=== PATIENT | female | born 1990 | race American Indian/Alaskan Native ===

== ENCOUNTER 2019-10-16 06:15 | Inpatient (IN) | payer MEDICAID, OTHER ==
[2019-10-16] MEDS ORDERED: SODIUM CHLORIDE 0.9% 1000 ML 1,000 ML IV ONE ×3 (06:58→11:49)
--- NOTE | 2019-10-16 07:05 | Emergency Department Report ---
ED Female HPI - General Chief complaint: Vaginal Bleeding Stated complaint: VAGINAL BLEED/ABD PAIN Time Seen by Provider: 10/16/19 06:30 Source: EMS Mode of arrival: Stretcher Limitations: No Limitations - History of Present Illness Initial comments: This is a 29-year-old female who states that she was given medicine to induce primary provider at [facility]. She has had some bleeding since yesterday. She was seen 2 days ago and determined to have a nonviable 6 weeks gestational age . She is not very willing to provide historical information. She has not been checked in by nursing staff at the time of my encounter. She arrived via EMS. She is not currently complaining of pain. She has had some vaginal bleeding this morning. MD Complaint: vaginal bleeding -: Gradual, days(s) Consistency: intermittent Are you Now?: Yes Associated Symptoms: denies other symptoms - Related Data Previous Rx's Medication Instructions Recorded Last Taken Type HYDROcodone/APAP 5-325 [[place] 1 each PO Q4HR PRN #7 tablet 10/16/19 Unknown Rx 5/325] Allergies Allergy/AdvReac Type Severity Reaction Status Date / Time No Known Allergies Allergy Unverified 10/16/19 07:17 ED Review of Systems ROS: Stated complaint: VAGINAL BLEED/ABD PAIN Other details as noted in HPI Constitutional: denies: chills, fever Eyes: denies: eye pain, vision change ENT: denies: ear pain, throat pain Respiratory: denies: cough, shortness of breath Cardiovascular: denies: chest pain, palpitations Endocrine: no symptoms reported Gastrointestinal: denies: abdominal pain, nausea, diarrhea Genitourinary: as per HPI Musculoskeletal: denies: back pain, arthralgia Skin: denies: rash, lesions Neurological: denies: headache, weakness Psychiatric: denies: anxiety, depression Hematological/Lymphatic: denies: easy bleeding, easy bruising ED Past Medical Hx - Past Medical History Previous Medical History?: Yes Additional medical history: 6-week nonviable - Social History Smoking Status: Unknown if ever smoked Substance Use Type: None - Medications Home Medications: Home Medications Medication Instructions Recorded Confirmed Last Taken Type HYDROcodone/APAP 5-325 [[place] 1 each PO Q4HR PRN #7 tablet 10/16/19 Unknown Rx 5/325] ED Physical Exam - General Limitations: Physical Limitation General appearance: obese - Head Head exam: Present: atraumatic, normocephalic - Eye Eye exam: Present: normal appearance. Absent: scleral icterus - ENT ENT exam: Present: mucous membranes moist - Neck Neck exam: Present: normal inspection - Respiratory Respiratory exam: Present: normal lung sounds bilaterally. Absent: respiratory distress - Cardiovascular Cardiovascular Exam: Present: regular rate, normal rhythm. Absent: systolic murmur, diastolic murmur, rubs, gallop - GI/Abdominal GI/Abdominal exam: Present: soft, normal bowel sounds. Absent: distended, tenderness, guarding, rebound - External exam: Present: other (Patient still fully clad) - Extremities Exam Extremities exam: Present: normal inspection - Back Exam Back exam: Present: normal inspection - Neurological Exam Neurological exam: Present: alert, oriented X3, CN II-XII intact. Absent: motor sensory deficit - Psychiatric Psychiatric exam: Present: normal affect, normal mood - Skin Skin exam: Present: warm, dry, intact, normal color. Absent: rash ED Course Vital Signs 10/16/19 10/16/19 10/16/19 06:15 06:37 06:43 Temperature 98.9 F Pulse Rate 136 H 124 H Respiratory 18 18 Rate Blood Pressure Blood Pressure 122/73 [Right] O2 Sat by Pulse 100 Oximetry 10/16/19 10/16/19 10/16/19 07:00 07:38 07:46 Temperature Pulse Rate 113 H 112 H 103 H Respiratory 28 H Rate Blood Pressure 122/73 96/50 107/67 Blood Pressure [Right] O2 Sat by Pulse 100 100 100 Oximetry 10/16/19 10/16/19 10/16/19 08:00 08:16 08:30 Temperature Pulse Rate 95 H 94 H 105 H Respiratory Rate Blood Pressure 111/43 111/61 116/65 Blood Pressure [Right] O2 Sat by Pulse 99 100 99 Oximetry - Reevaluation(s) Reevaluation #1: Laboratory database. OB ultrasound. IV fluids. 10/16/19 07:06 Reevaluation #2: Patient appears comfortable. No active bleeding. Vital signs stable. 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 10/16/19 08:46 ED Medical Decision Making - Lab Data Result diagrams: 10/16/19 07:32 10/16/19 07:32 Laboratory Results - last 24 hr 10/16/19 10/16/19 10/16/19 07:32 07:32 07:32 WBC 14.9 H RBC 3.01 L Hgb 9.8 L Hct 29.1 L MCV 97 MCH 32 MCHC 34 RDW 19.1 H Plt Count 348 Lymph % (Auto) 3.8 L [place] % (Auto) 9.4 H Eos % (Auto) 0.0 Baso % (Auto) 0.2 Lymph # 0.6 L [place] # 1.4 H Eos # 0.0 Baso # 0.0 Seg Neutrophils % 86.6 H Seg Neutrophils # 12.9 H Sodium 136 L Potassium 3.2 L Chloride 102.3 Carbon Dioxide 18 L Anion Gap 19 BUN 6 L Creatinine 0.6 L Estimated GFR > 60 BUN/Creatinine Ratio 10 Glucose 180 H Calcium 8.7 HCG, Quant 78656 H - Radiology Data FINDINGS: The uterus is anteverted. The uterus measures 14 x 5 x 6 cm. No obvious uterine fibroid disease. The endometrial stripe measures up to 1.7 cm in thickness on transabdominal imaging. No normal intrauterine is detected. There is a cystic structure within the cervical canal measuring up to 3.9 cm in diameter which may represent a gestational sac. No clear yolk sac, pole or heart tones are demonstrated. The right ovary measures 2.6 x 1.7 x 1.7 cm. The left ovary measures 2.4 x 1.4 x 1.8 cm. No adnexal cyst or mass. No pelvic fluid collection. IMPRESSION No normal intrauterine is demonstrated. There may be a gestational sac in the cervical canal suggesting an impending . The endometrium is thickened measuring up to 1.7 cm on transabdominal imaging. Please correlate with the patient's clinical presentation. Close interval follow-up is recommended. Critical care attestation.: If time is entered above; I have spent that time in minutes in the direct care of this critically ill patient, excluding procedure time. ED Disposition Clinical Impression: Spontaneous in first trimester, Hypokalemia Disposition: - TO HOME OR SELFCARE Is pt being admited?: No Does the pt Need Aspirin: No Condition: Stable Instructions: Spontaneous Miscarriage (ED), Hypokalemia (ED) Additional Instructions: You may have some continued bleeding. Return to the emergency department or see your lumber chain offbearer if it is significant. Follow-up with your lumber chain offbearer. Rx as needed for pain. Prescriptions: HYDROcodone/APAP 5-325 [[place] 5/325] 1 each PO Q4HR PRN #7 tablet PRN Reason: Pain Referrals: PRIMARY CARE,MD [Primary Care Provider] - 3-5 Days Your, [facility] physician [Other] - 2-3 Days Time of Disposition: 08:47
[2019-10-16] MEDS ORDERED: MORPHINE 2 MG/1 ML INJ IV ONE (07:32)
[2019-10-16] MEDS ORDERED: ONDANSETRON 4 MG/2 ML INJ IV ONE (07:32)
[2019-10-16 07:47] LABS: Basophils % (Auto) 0.2 % (0.0-1.8); Hematocrit 29.1 % (30.3-42.9); Hemoglobin 9.8 gm/dl (10.1-14.3); Lymphocytes # (Auto) 0.6 K/mm3 (1.2-5.4); Lymphocytes % (Auto) 3.8 % (13.4-35.0); Mean Corpuscular HGB Conc 34 % (30-34); Mean Corpuscular Volume 97 fl (79-97); Monocytes # (Auto) 1.4 K/mm3 (0.0-0.8); Monocytes % (Auto) 9.4 % (0.0-7.3); Platelet Count 348 K/mm3 (140-440); Red Blood Count 3.01 M/mm3 (3.65-5.03); Red Cell Distribution Width 19.1 % (13.2-15.2)
[2019-10-16 07:57] LABS: BUN/Creatinine Ratio 10; Blood Urea Nitrogen 6 mg/dL (7-17); Calcium 8.7 mg/dL (8.4-10.2); Hemolysis Index 7
--- NOTE | 2019-10-16 08:00 | Ultrasound Report ---
FIRSTTRIMESTER OBSTETRIC ULTRASOUND HISTORY: Miscarriage, heavy vaginal bleeding with clots and cramping since yesterday COMPARISON: None. TECHNIQUE: Routine transabdominal OB ultrasound performed. FINDINGS: The uterus is anteverted. The uterus measures 14 x 5 x 6 cm. No obvious uterine fibroid disease. The endometrial stripe measures up to 1.7 cm in thickness on transabdominal imaging. No normal intrau terine is detected. There is a cystic structure within the cervical canal measuring up to 3 .9 cm in diameter which may represent a gestational sac. No clear yolk sac, pole or heart tones are demonstrated. The right ovary measures 2.6 x 1.7 x 1.7 cm. The left ovary measures 2.4 x 1.4 x 1.8 cm. No adnexal c yst or mass. No pelvic fluid collection. IMPRESSION No normal intrauterine is demonstrated. There may be a gestational sac in the cervical noemi l suggesting an impending . The endometrium is thickened measuring up to 1.7 cm on transabdom inal imaging. Please correlate with the patient's clinical presentation. Close interval follow-up is recommended. Signer Name: Suresh Cueto Jr, MD Signed: 10/16/2019 7:56 AM Workstation Name: [id number]
[2019-10-16] MEDS ORDERED: POTASSIUM CHLORIDE ER 20 MEQ TAB PO ONE (08:17)
[2019-10-16] MEDS ORDERED: HYDROcodone/ACETAMINOPHEN 5-325 MG TAB PO ONE (08:49)
[2019-10-16] MEDS ORDERED: METHYLERGONOVINE MALEATE 0.2 MG/ML VIAL IM ONE (12:47)
--- NOTE | 2019-10-16 12:59 | Consultation ---
History of Present Illness Consult date: 10/16/19 Requesting physician: YANELIS SAUNDERS Reason for consult: early problem History of present illness: This is a 29-year-old black female para 3-0-1-3 who presented to the emergency room with symptoms consistent with a spontaneous . Patient states she was seen approximately 2 days ago at [facility] and was diagnosed with a miscarriage. Patient states that she was given medication to help pass the . Patient presented in the emergency room due to increased heavy bleeding and pain. Work-up in emergency room included an ultrasound which revealed no intrauterine and what appears to be a collapsing gestational sac in her cervical canal. Past History Past Medical History: blood transfusion (Received postoperatively after section and after a previous miscarriage), other (Anemia) Past Surgical History: section, D&C Social history: - Obstetrical History : 5 Para: 3 Hx # Term Pregnancies: 3 Number of Pregnancies: 0 Spontaneous Abortions: 1 Induced : 0 Number of Living Children: 3 Medications and Allergies Allergies Allergy/AdvReac Type Severity Reaction Status Date / Time No Known Allergies Allergy Unverified 10/16/19 07:17 Home Medications Medication Instructions Recorded Confirmed Last Taken Type HYDROcodone/APAP 5-325 [[place] 1 each PO Q4HR PRN #7 tablet 10/16/19 Unknown Rx 5/325] Active Meds: Active Medications Sodium Chloride (Nacl 0.9% 1000 Ml) 1,000 mls @ 250 mls/hr IV ONCE ONE Stop: 10/16/19 15:48 Methylergonovine Maleate (Methergine) 0.2 mg IM ONCE ONE Stop: 10/16/19 12:48 - Vital Signs Vital signs: Vital Signs Temp 98.9 F 10/16/19 06:15 Temp Pulse Resp BP Pulse Ox 98.9 F 105 H 28 H 116/65 99 10/16/19 06:15 10/16/19 08:30 10/16/19 07:00 10/16/19 08:30 10/16/19 08:30 - Physical Exam Breasts: Positive: deferred Cardiovascular: Regular rate Lungs: Positive: Normal air movement Abdomen: Positive: normal appearance, soft Genitourinary (Female): Positive: normal external genitalia (Blood present in vagina) Vagina: Positive: normal moisture Cervix: Positive: other (What appears to be products of conception in cervical office) Results Result Diagrams: 10/16/19 07:32 10/16/19 07:32 Abnormal lab results 10/16/19 10/16/19 10/16/19 Range/Units 07:32 07:32 07:32 WBC 14.9 H (4.5-11.0) K/mm3 RBC 3.01 L (3.65-5.03) M/mm3 Hgb 9.8 L (10.1-14.3) gm/dl Hct 29.1 L (30.3-42.9) % RDW 19.1 H (13.2-15.2) % Lymph % (Auto) 3.8 L (13.4-35.0) % [place] % (Auto) 9.4 H (0.0-7.3) % Lymph # 0.6 L (1.2-5.4) K/mm3 [place] # 1.4 H (0.0-0.8) K/mm3 Seg Neutrophils % 86.6 H (40.0-70.0) % Seg Neutrophils # 12.9 H (1.8-7.7) K/mm3 Sodium 136 L (137-145) mmol/L Potassium 3.2 L (3.6-5.0) mmol/L Carbon Dioxide 18 L (22-30) mmol/L BUN 6 L (7-17) mg/dL Creatinine 0.6 L (0.7-1.2) mg/dL Glucose 180 H (65-100) mg/dL HCG, Quant 27855 H (0-4) mIU/mL All other labs normal. Assessment and Plan - Patient Problems (1) Incomplete Current Visit: Yes Status: Acute Plan to address problem: Patient bedside remove blood clots and what appears to be products of conception from her cervical os. Patient's bleeding did decrease doing this procedure. Will give patient on Methergine. Will repeat H&H to assess level of anemia. Discussed with the patient the possibility of dilatation curettage if heavy bleeding returns and Methergine does not effectively passed the . Discussed the risks of the surgery including bleeding infection possible perforation of uterus. Patient agrees to proceed with the procedure if indicated. (2) Anemia Current Visit: Yes Status: Acute Qualifiers: Anemia type: unspecified type Qualified Code(s): D64.9 - Anemia, unspecified Plan to address problem: Repeat CBC has been ordered by Dr. Saunders will continue to evaluate patient's vital signs and amount of bleeding. (3) Rh negative status during in first trimester Current Visit: Yes Status: Chronic Plan to address problem: Patient states she received [place] at [place] [facility] [place]
[2019-10-16] MEDS ORDERED: KETOROLAC 30 MG/1 ML INJ IV ONE (13:06)
[2019-10-16 13:16] LABS: Hematocrit 24.6 % (30.3-42.9); Mean Corpuscular HGB Conc 33 % (30-34); Mean Corpuscular Volume 99 fl (79-97); Platelet Count 297 K/mm3 (140-440); Red Blood Count 2.49 M/mm3 (3.65-5.03); Red Cell Distribution Width 18.7 % (13.2-15.2)
[2019-10-16 13:50] LABS: Anisocytosis 1+; Basophils % (Manual) 0 % (0.0-1.8); Eosinophils % (Manual) 0 % (0.0-4.3); Platelet Estimate Consistent w Auto; Total Cells Counted 100; Toxic Granulation 3+
[2019-10-16] MEDS ORDERED: diphenhydrAMINE 50 MG CAP PO SCH (17:46)
--- NOTE | 2019-10-16 17:50 | Event Note ---
Date: 10/16/19 Patient is lying in bed stating that the bleeding is much less cramping is less, patient did complain of some dizziness when getting up to go to the bathroom. Patient hemoglobin dropped from 9.8 to 8.0. Patient's vital signs have improved heart rate and blood pressure was within normal range. Patient with a history of bleeding and bleeding excessively with previous miscarriage. Due to the orthostatic symptoms will transfuse 2 units of packed red blood cells continue Methergine p.o. and watch overnight.
[2019-10-16] MEDS ORDERED: ACETAMINOPHEN 325 MG TAB PO ONE ×2 (19:00→23:10)
[2019-10-16] MEDS: METHYLERGONOVINE 0.2 MG TABLET PO SCH (21:42)
[2019-10-16] MEDS: SODIUM CHLORIDE 0.9% 500 ML 500 ML IV SCH (21:45)
[2019-10-16 23:44] LABS: Hematocrit 20.5 % (30.3-42.9); Hemoglobin 6.8 gm/dl (10.1-14.3); Mean Corpuscular HGB Conc 33 % (30-34); Mean Corpuscular Volume 95 fl (79-97); Platelet Count 262 K/mm3 (140-440); Red Blood Count 2.15 M/mm3 (3.65-5.03); Red Cell Distribution Width 18.4 % (13.2-15.2)
[2019-10-17 00:12] LABS: Bacteria,Urine 1+ /HPF (Negative); Bilirubin,Urine NEG (Negative); Blood,Urine MOD (Negative); Color,Urine Yellow (Yellow); Mucus,Urine 1+ /HPF; Protein,Urine <15 mg/dL mg/dL (Negative)
[2019-10-17] MEDS: ACETAMINOPHEN 325 MG TAB PO PRN ×3 (02:35→23:33)
[2019-10-17 03:27] LABS: Basophils % (Manual) 0 % (0.0-1.8); Eosinophils % (Manual) 0 % (0.0-4.3); Total Cells Counted 100
[2019-10-17 03:28] LABS: Anisocytosis Few
[2019-10-17 03:30] LABS: Platelet Estimate Consistent w Auto
[2019-10-17] MEDS: IBUPROFEN 800 MG TAB PO PRN (04:56)
[2019-10-17] MEDS: METHYLERGONOVINE 0.2 MG TABLET PO SCH ×3 (05:26→23:34)
[2019-10-17 05:59] LABS: Color,Urine Red (Yellow)
[2019-10-17 06:00] LABS: Bacteria,Urine 4+ /HPF (Negative); Bilirubin,Urine NEG (Negative); Blood,Urine LG (Negative); Mucus,Urine FEW /HPF; Urobilinogen,Urine < 2.0 mg/dL (<2.0)
[2019-10-17 06:01] LABS: WBC,Urine > 182.0 /HPF (0.0-6.0)
[2019-10-17 07:59] LABS: Basophils # (Auto) 0.1 K/mm3 (0.0-0.1); Basophils % (Auto) 0.3 % (0.0-1.8); Eosinophils % (Auto) 0.1 % (0.0-4.3); Hemoglobin 7.9 gm/dl (10.1-14.3); Lymphocytes # (Auto) 1.3 K/mm3 (1.2-5.4); Lymphocytes % (Auto) 7.5 % (13.4-35.0); Mean Corpuscular HGB Conc 33 % (30-34); Mean Corpuscular Volume 97 fl (79-97); Monocytes # (Auto) 1.1 K/mm3 (0.0-0.8); Monocytes % (Auto) 6.1 % (0.0-7.3); Platelet Count 264 K/mm3 (140-440); Red Blood Count 2.47 M/mm3 (3.65-5.03); Red Cell Distribution Width 19.3 % (13.2-15.2)
--- NOTE | 2019-10-17 08:42 | Progress Note ---
Assessment and Plan - Patient Problems (1) Febrile Current Visit: Yes Status: Acute Plan to address problem: could be secondary to the transfusion rx vs septic . Will start tripples at the time, await cx and closely monitor. (2) Incomplete Current Visit: Yes Status: Acute Plan to address problem: Will start tripples at the time, await cx and closely monitor. (3) Spontaneous in first trimester Current Visit: Yes Status: Acute Plan to address problem: Will start tripples at the time, await cx and closely monitor. -routine pp care -d/c home when 24hrs afebrile (4) Anemia Current Visit: Yes Status: Acute Qualifiers: Anemia type: unspecified type Qualified Code(s): D64.9 - Anemia, unspecified Plan to address problem: Hg 7.9 and pt reports no sx. Will replace po at this time bid. Subjective Date of service: 10/17/19 Principal diagnosis: HD#1 s/p incomplete AB now with febril morbidity Interval history: Pt states she does not have dizziness with ambulation, has moderate bleeding but not more than a period, and has no chills at this time. I d/w pt that the temp she had could have been associated with the transfusion that was started but that It also could be related to having had an incomplete . I d/w starting antix at this time (amp,gent, clinda) and that her blood and urine cultures are pending. I also d/w that she will be d/c home after 24hrs of no temp. Again she expressed understanding and agrees with plan of care. Objective - Constitutional Vitals: Vital Signs - 12hr 10/16/19 10/17/19 10/17/19 21:45 01:50 02:00 Temperature 100.3 F H 100.2 F H 100.2 F H Pulse Rate 84 96 H 100 H Respiratory 18 26 H 18 Rate Blood Pressure 98/48 Blood Pressure 95/52 111/54 [Right] O2 Sat by Pulse 100 100 100 Oximetry 10/17/19 10/17/19 10/17/19 02:05 02:09 02:20 Temperature 100.3 F H 100.3 F H 100.8 F H Pulse Rate 98 H 98 H 102 H Respiratory 24 Rate Blood Pressure 111/54 116/59 Blood Pressure [Right] O2 Sat by Pulse 100 100 100 Oximetry 05/15/20 05/15/20 05/15/20 02:35 03:05 03:35 Temperature 100.9 F H 101.1 F H 101.4 F H Pulse Rate 100 H 97 H 103 H Respiratory 24 25 H Rate Blood Pressure 112/59 118/61 117/59 Blood Pressure [Right] O2 Sat by Pulse 100 100 99 Oximetry 10/17/19 10/17/19 10/17/19 03:50 04:56 04:59 Temperature 101.4 F H 100.0 F H Pulse Rate 103 H 107 H Respiratory 25 H 24 24 Rate Blood Pressure 99/52 Blood Pressure 121/70 [Right] O2 Sat by Pulse 100 100 Oximetry 10/17/19 05:38 Temperature Pulse Rate 104 H Respiratory 24 Rate Blood Pressure Blood Pressure 114/66 [Right] O2 Sat by Pulse 100 Oximetry General appearance: Present: no acute distress - Respiratory Respiratory effort: normal Respiratory: bilateral: CTA - Breasts Breasts: deferred - Cardiovascular Rhythm: regular Extremities: no ischemia - Gastrointestinal General gastrointestinal: Present: soft, non-tender, non-distended Rectal Exam: deferred - Genitourinary Female genitourinary: deferred - Neurologic Neurologic: CNII-XII intact - Psychiatric Psychiatric: appropriate mood/affect - Labs CBC & Chem 7: 10/17/19 07:27 10/16/19 07:32 Labs: Abnormal lab results 10/16/19 10/16/19 10/16/19 Range/Units 12:57 20:35 22:58 WBC 31.0 H 22.9 H (4.5-11.0) K/mm3 RBC 2.49 L 2.15 L (3.65-5.03) M/mm3 Hgb 8.0 L 6.8 L (10.1-14.3) gm/dl Hct 24.6 L 20.5 L (30.3-42.9) % MCV 99 H (79-97) fl RDW 18.7 H 18.4 H (13.2-15.2) % Lymph % (Auto) (13.4-35.0) % [place] # (0.0-0.8) K/mm3 Seg Neutrophils % (40.0-70.0) % Seg Neuts % (Manual) 94.0 H 86.0 H (40.0-70.0) % Lymphocytes % (Manual) 4.0 L 7.0 L (13.4-35.0) % Seg Neutrophils # (1.8-7.7) K/mm3 Seg Neutrophils # Man 29.1 H 19.7 H (1.8-7.7) K/mm3 Monocytes # (Manual) 1.6 H (0.0-0.8) K/mm3 Urine WBC (Auto) (0.0-6.0) /HPF Crossmatch See Detail 10/17/19 10/17/19 Range/Units 05:05 07:27 WBC 17.5 H (4.5-11.0) K/mm3 RBC 2.47 L (3.65-5.03) M/mm3 Hgb 7.9 L (10.1-14.3) gm/dl Hct 24.0 L (30.3-42.9) % MCV (79-97) fl RDW 19.3 H (13.2-15.2) % Lymph % (Auto) 7.5 L (13.4-35.0) % [place] # 1.1 H (0.0-0.8) K/mm3 Seg Neutrophils % 86.0 H (40.0-70.0) % Seg Neuts % (Manual) (40.0-70.0) % Lymphocytes % (Manual) (13.4-35.0) % Seg Neutrophils # 15.1 H (1.8-7.7) K/mm3 Seg Neutrophils # Man (1.8-7.7) K/mm3 Monocytes # (Manual) (0.0-0.8) K/mm3 Urine WBC (Auto) > 182.0 H (0.0-6.0) /HPF Crossmatch Medications & Allergies - Medications Allergies/Adverse Reactions: Allergies No Known Allergies Allergy (Unverified 10/16/19 07:17) Home Medications: Home Medications Medication Instructions Recorded Confirmed Last Taken Type HYDROcodone/APAP 5-325 [[place] 1 each PO Q4HR PRN #7 tablet 10/16/19 Unknown Rx 5/325] Active Medications: Generic Name Dose Route Start Last Admin Trade Name Freq PRN Reason Stop Dose Admin Acetaminophen 650 mg 10/17/19 02:29 10/17/19 02:35 Tylenol PO 650 mg Q4H PRN Administration Pain, Mild (1-3) Diphenhydramine HCl 50 mg 10/16/19 17:46 10/17/19 00:16 Benadryl PO 50 mg PRETR [place] Administration Sodium Chloride 500 mls @ 0 mls/hr 10/16/19 17:44 10/16/19 21:45 Nacl 0.9% 500 Ml IV 50 mls/hr ONCE [place]A Administration As Directed Ibuprofen 800 mg 10/17/19 03:51 10/17/19 04:56 Ibuprofen PO 800 mg Q8H PRN Administration Pain, Mild (1-3) Methylergonovine Maleate 0.2 mg 10/16/19 22:00 10/17/19 05:26 Methergine PO 0.2 mg Q8HR CAROLA Administration
[2019-10-17] MEDS: AMPICILLIN/NS 1 GM/50 ML 1 GM/50 ML BAG IV SCH ×2 (11:11→17:05)
[2019-10-17] MEDS: FERROUS SULFATE 325 MG TAB PO SCH ×2 (11:42→19:48)
[2019-10-17] MEDS: GENTAMICIN 400 MG in SODIUM CHLORIDE 0.9% 100 ML IV SCH (13:01)
--- NOTE | 2019-10-18 01:20 | Event Note ---
Date: 10/18/19 Pt has spiked a temp despite being on tripples(amp, gent, clinda) She also has informed her RN that she was having chest discomfort with breathing which is a new c/o as she did not c/o of this on admission nor with provider this am. Will obtain cxr and this time and Covid19 testing. Plan of care d/w RN and questions were addressed and answered.
--- NOTE | 2019-10-18 01:49 | XRay Report ---
CHEST 1 VIEW INDICATION / CLINICAL INFORMATION: chest pain. COMPARISON: None available. FINDINGS: SUPPORT DEVICES: None. HEART / MEDIASTINUM: No significant abnormality. LUNGS / PLEURA: No significant pulmonary or pleural abnormality.. No pneumothorax. ADDITIONAL FINDINGS: No significant additional findings. IMPRESSION: 1. No acute findings. Signer Name: John Castellanos MD Signed: 10/18/2019 1:44 AM Workstation Name: [id number]
[2019-10-18] MEDS: AMPICILLIN/NS 1 GM/50 ML 1 GM/50 ML BAG IV SCH ×5 (01:52→23:54)
[2019-10-18 03:26] LABS: C-Reactive Protein 6.4 mg/dL (0.00-1.30)
[2019-10-18] MEDS: METHYLERGONOVINE 0.2 MG TABLET PO SCH ×2 (06:17→16:19)
[2019-10-18] MEDS: FERROUS SULFATE 325 MG TAB PO SCH ×2 (09:41→16:19)
[2019-10-18] MEDS: ACETAMINOPHEN 325 MG TAB PO PRN ×2 (09:42→19:35)
[2019-10-18 14:09] LABS: Hematocrit 22.3 % (30.3-42.9); Hemoglobin 7.4 gm/dl (10.1-14.3); Mean Corpuscular HGB Conc 33 % (30-34); Mean Corpuscular Volume 97 fl (79-97); Platelet Count 285 K/mm3 (140-440); Red Blood Count 2.31 M/mm3 (3.65-5.03)
--- NOTE | 2019-10-18 14:40 | Progress Note ---
Assessment and Plan - Patient Problems (1) Spontaneous in first trimester Current Visit: Yes Status: Acute Plan to address problem: No bleeding, tissue removed in ER by Dr. Perez. Path report reviewed US reveals thinned endometrium, doubt any retained POC's (2) Anemia Current Visit: Yes Status: Acute Qualifiers: Anemia type: unspecified type Qualified Code(s): D64.9 - Anemia, unspecified Plan to address problem: Stable, she received 1unit PRBC. Will continue iron tid (3) Febrile Current Visit: Yes Status: Acute Qualifiers: Fever type: post-procedural Qualified Code(s): R50.82 - Postprocedural fever Plan to address problem: Possible due to infected /POC's Continue Amp/Gent and Clinda. Will change to PO antibiotics tomorrow if she remains afebrile today (4) Hypokalemia Current Visit: Yes Status: Acute Plan to address problem: Tolerating po now, will rechk in am (5) Rh negative status during in first trimester Current Visit: Yes Status: Chronic Plan to address problem: Patient states she received RhoGam at her visit previously at [facility] [place]. (6) Incomplete Current Visit: Yes Status: Acute Subjective Date of service: 10/18/19 Principal diagnosis: HD#6 s/p incomplete AB now with febrile morbidity Interval history: Patient resting in bed, no complaints, tolerating diet without difficulty. No bleeding, no pain Objective - Constitutional Vitals: Vital Signs - 12hr 10/18/19 10/18/19 10/18/19 04:40 08:33 12:38 Temperature 98.7 F 101.1 F H 98.4 F Pulse Rate 81 101 H 82 Respiratory 20 20 18 Rate Blood Pressure 108/51 106/50 110/63 O2 Sat by Pulse 100 100 100 Oximetry General appearance: Present: no acute distress - Respiratory Respiratory: bilateral: CTA - Cardiovascular Rhythm: regular Extremities: no ischemia, No edema - Gastrointestinal General gastrointestinal: Present: soft, non-tender, non-distended, normal bowel sounds - Labs CBC & Chem 7: 10/18/19 13:08 10/18/19 02:29 Labs: Abnormal lab results 10/18/19 10/18/19 10/18/19 Range/Units 02:29 02:29 13:08 WBC 16.6 H (4.5-11.0) K/mm3 RBC 2.31 L (3.65-5.03) M/mm3 Hgb 7.4 L (10.1-14.3) gm/dl Hct 22.3 L (30.3-42.9) % RDW 19.0 H (13.2-15.2) % D-Dimer 261.85 H (0-234) ng/mlDDU Glucose 111 H (65-100) mg/dL Lactate Dehydrogenase 188 H (91-180) units/L C-Reactive Protein 6.40 H (0.00-1.30) mg/dL - Imaging and cardiology US - abdomen: image reviewed Medications & Allergies - Medications Allergies/Adverse Reactions: Allergies No Known Allergies Allergy (Unverified 10/16/19 07:17) Home Medications: Home Medications Medication Instructions Recorded Confirmed Last Taken Type HYDROcodone/APAP 5-325 [[place] 1 each PO Q4HR PRN #7 tablet 10/16/19 Unknown Rx 5/325] Active Medications: Generic Name Dose Route Start Last Admin Trade Name Freq PRN Reason Stop Dose Admin Acetaminophen 650 mg 10/18/19 12:59 Tylenol PO Q6H PRN Pain, Mild (1-3) Diphenhydramine HCl 50 mg 10/16/19 17:46 10/17/19 00:16 Benadryl PO 50 mg PRETR CAROLA Administration Ferrous Sulfate 325 mg 10/17/19 10:00 10/18/19 09:41 Feosol PO 325 mg TID [place] Administration Sodium Chloride 500 mls @ 0 mls/hr 10/16/19 17:44 10/16/19 21:45 Nacl 0.9% 500 Ml IV 50 mls/hr ONCE [place] Administration As Directed Ampicillin Sodium 1 gm in 50 mls @ 100 mls/hr 10/17/19 09:30 10/18/19 09:43 Ampicillin/Ns 1 Gm/50 Ml IV 125 mls/hr Q6H CAR[place]A Administration Protocol Gentamicin Sulfate 400 mg/ 110 mls @ 200 mls/hr 10/17/19 11:00 10/17/19 13:01 Sodium Chloride IV 200 mls/hr Q24H CAR[place]A Administration Clindamycin HCl 900 mg in 50 mls @ 100 mls/hr 10/18/19 10:00 10/18/19 09:44 Cleocin 900 Mg/50 Ml IV 100 mls/hr Q8H CAR[place] Administration Protocol Ibuprofen 800 mg 10/17/19 03:51 10/17/19 04:56 Ibuprofen PO 800 mg Q8H PRN Administration Pain, Mild (1-3) Methylergonovine Maleate 0.2 mg 10/16/19 22:00 10/18/19 06:17 Methergine PO 10/18/19 21:59 0.2 mg Q8HR CAROLA Administration
--- NOTE | 2019-10-18 15:42 | Ultrasound Report ---
Pelvic ultrasound INDICATION: 2 days status post dilatation and curettage, possible retained products of conception TECHNIQUE: Endovaginal only Uterus measures 12.2 cm in length. Endometrial stripe measures 3 mm. No fluid is seen within the endo metrial canal. I do not see obvious evidence of retained products of conception. No adnexal masses are seen. Ovaries are not identified. No free fluid is seen. Signer Name: Ismael Goldberg MD Signed: 10/18/2019 3:38 PM Workstation Name: [id number]
[2019-10-18] MEDS: GENTAMICIN 400 MG in SODIUM CHLORIDE 0.9% 100 ML IV SCH (16:18)
[2019-10-18] MEDS: IBUPROFEN 800 MG TAB PO PRN (16:23)
[2019-10-18] MEDS: SODIUM CHLORIDE 0.9% 500 ML 500 ML IV SCH (19:36)
[2019-10-19] MEDS: FERROUS SULFATE 325 MG TAB PO SCH ×5 (00:13→21:48)
[2019-10-19] MEDS: AMPICILLIN/NS 1 GM/50 ML 1 GM/50 ML BAG IV SCH ×3 (06:09→18:37)
[2019-10-19] MEDS: ACETAMINOPHEN 325 MG TAB PO PRN (06:44)
[2019-10-19] MEDS ORDERED: metroNIDAZOLE 500 MG TAB PO ONE ×2 (08:00→12:00)
--- NOTE | 2019-10-19 11:07 | Progress Note ---
Assessment and Plan - Patient Problems (1) Endometritis Current Visit: Yes Status: Acute Plan to address problem: Continue A/G/C, fever is slowly defervescing (2) Urinary tract infection Current Visit: Yes Status: Acute Plan to address problem: Should be treated with current antibiotic regimen (3) Febrile Current Visit: Yes Status: Acute Qualifiers: Fever type: post-procedural Qualified Code(s): R50.82 - Postprocedural fever Plan to address problem: T: 100.7Fat 630 today, patient aware she needs be afebrile at least for 24hrs before the IV antibiotics can be changed to oral, she voiced understanding (4) Spontaneous in first trimester Current Visit: Yes Status: Acute (5) Anemia Current Visit: Yes Status: Acute Qualifiers: Anemia type: unspecified type Qualified Code(s): D64.9 - Anemia, u nspecified Plan to address problem: Stable, she received 1unit PRBC. Will continue iron tid (6) Hypokalemia Current Visit: Yes Status: Resolved (7) Rh negative status during in first trimester Current Visit: Yes Status: Chronic Plan to address problem: Patient states she [place] [facility] [place] (8) Incomplete Current Visit: Yes Status: Acute Subjective Date of service: 10/19/19 Principal diagnosis: HD#3 s/p incomplete AB now with endometritis Interval history: Resting in bed no complaints, no bleeding. RN restarting IV Objective - Constitutional Vitals: Vital Signs - 12hr 10/18/19 10/19/19 10/19/19 23:56 04:13 06:29 Temperature 98.2 F 100.8 F H 100.7 F H Pulse Rate 94 H 98 H Respiratory 20 20 Rate Blood Pressure 120/72 106/42 Blood Pressure [Right] O2 Sat by Pulse 100 97 Oximetry 10/19/19 09:44 Temperature 98.5 F Pulse Rate 90 Respiratory 18 Rate Blood Pressure Blood Pressure 119/76 [Right] O2 Sat by Pulse 100 Oximetry General appearance: Present: no acute distress - Labs CBC & Chem 7: 10/18/19 13:08 10/19/19 08:08 Labs: Abnormal lab results 10/18/19 10/19/19 Range/Units 13:08 08:08 WBC 16.6 H (4.5-11.0) K/mm3 RBC 2.31 L (3.65-5.03) M/mm3 Hgb 7.4 L (10.1-14.3) gm/dl Hct 22.3 L (30.3-42.9) % RDW 19.0 H (13.2-15.2) % Potassium 3.4 L (3.6-5.0) mmol/L Medications & Allergies - Medications Allergies/Adverse Reactions: Allergies No Known Allergies Allergy (Unverified 10/16/19 07:17) Home Medications: Home Medications Medication Instructions Recorded Confirmed Last Taken Type HYDROcodone/APAP 5-325 [[place] 1 each PO Q4HR PRN #7 tablet 10/16/19 Unknown Rx 5/325] Active Medications: Generic Name Dose Route Start Last Admin Trade Name Freq PRN Reason Stop Dose Admin Acetaminophen 650 mg 10/18/19 12:59 10/19/19 06:44 Tylenol PO 650 mg Q6H PRN Administration Pain, Mild (1-3) Diphenhydramine HCl 50 mg 10/16/19 17:46 10/17/19 00:16 Benadryl PO 50 mg PRETR CAROLA Administration Ferrous Sulfate 325 mg 10/17/19 10:00 10/19/19 10:23 Feosol PO 325 mg TID CAROLA Administration Sodium Chloride 500 mls @ 0 mls/hr 10/16/19 17:44 10/18/19 19:36 Nacl 0.9% 500 Ml IV 50 mls/hr ONCE CAROLA Administration As Directed Ampicillin Sodium 1 gm in 50 mls @ 100 mls/hr 10/17/19 09:30 10/19/19 06:09 Ampicillin/Ns 1 Gm/50 Ml IV 125 mls/hr Q6H CAROLA Administration Protocol Gentamicin Sulfate 400 mg/ 110 mls @ 200 mls/hr 10/17/19 11:00 10/18/19 16:18 Sodium Chloride IV 200 mls/hr Q24H CAROLA Administration Clindamycin HCl 900 mg in 50 mls @ 100 mls/hr 10/18/19 10:00 10/19/19 10:23 Cleocin 900 Mg/50 Ml IV 100 mls/hr Q8H CAROLA Administration Protocol Ibuprofen 800 mg 10/17/19 03:51 10/18/19 16:23 Ibuprofen PO 800 mg Q8H PRN Administration Pain, Mild (1-3)
[2019-10-19] MEDS: GENTAMICIN 400 MG in SODIUM CHLORIDE 0.9% 100 ML IV SCH (15:31)
[2019-10-19] MEDS: IBUPROFEN 800 MG TAB PO PRN (17:11)
[2019-10-20] MEDS: AMPICILLIN/NS 1 GM/50 ML 1 GM/50 ML BAG IV SCH ×2 (00:17→06:06)
--- NOTE | 2019-10-20 07:47 | Discharge Summary ---
Providers - Providers Date of Admission: 10/16/19 13:39 Date of discharge: 10/20/19 (pt agrees to d/c ) Attending physician: ESTRELLITA AMAYA Primary care physician: ORNAMENTER HAND Hospitalization Reason for admission: fever, pelvic pain Condition: Good Hospital course: IV ABX; resolution of fever; no further pelvic pain Disposition: DC-01 TO HOME OR SELFCARE Time spent for discharge: 15min - Discharge Diagnoses (1) Febrile Status: Acute Qualifiers: Fever type: post-procedural Qualified Code(s): R50.82 - Postprocedural fever Comment: Afebrile X 24 hours; blood cultures negative (2) Spontaneous in first trimester Status: Acute Comment: Bleeding is now minimal. Pt will f/u in office next week (3) Rh negative status during in first trimester Status: Chronic Comment: Will give Rhogam prior to d/c Core Measure Documentation - Palliative Care Palliative Care/ Comfort Measures: Not Applicable - Core Measures Any of the following diagnoses?: none - VTE Discharge Requirements Deep Vein Thrombosis/Pulmonary Embolism Present on Admission: No Has pt received <5 days of overlap therapy or INR<2.0: No Anticoagulant overlap therapy prescribed at discharge: No Contraindication No Overlap Therapy order at DC: Not Indicated - Acute [place] Discharge Requirements Aspirin at discharge: No Reason for no aspirin on DC: Medical contraindication ROCCO/ARB for LVSD if EF <40%: Not Applicable Reason for no ROCCO/ARB: Medical contraindication Beta tio at discharge: No Reason for no beta tio on DC: Medical contraindication Statin for LDL = or >100 mg/dl on DC: Not Applicable Reason for no statin on DC: Medical contraindication - Heart Failure Discharge Requirements ROCCO/ARB for LVSD if EF <40%: Not Applicable Reason for no ROCCO/ARB: Medical contraindication Beta tio at discharge: No Reason for no beta tio on DC: Medical contraindication - Stroke Discharge Requirements Statin for LDL = or >70 mg/dl on DC: Not Applicable Reason for no statin on DC: Not Indicated Anticoag for atrial fib/atrial flutter: Not Applicable Reason for no anticoag for AF/F on DC: Not Indicated Antithrombotic for ischemic stroke: No Reason for no antithrombotic on DC: Not Indicated Exam - Constitutional Vitals: Temp Pulse Resp BP Pulse Ox 98.0 F 92 H 18 108/55 100 10/20/19 04:41 10/20/19 04:41 10/20/19 04:41 10/20/19 04:41 10/20/19 04:41 General appearance: Present: no acute distress, well-nourished - EENT Eyes: Present: PERRL ENT: hearing intact, clear oral mucosa - Neck Neck: Present: supple, normal ROM - Respiratory Respiratory effort: normal Respiratory: bilateral: CTA - Cardiovascular Heart Sounds: Present: S1 & S2. Absent: rub, click - Extremities Extremities: pulses symmetrical, No edema Peripheral Pulses: within normal limits - Abdominal General gastrointestinal: Present: soft, non-tender, non-distended, normal bowel sounds Female genitourinary: Present: normal - Rectal Rectal Exam: deferred - Integumentary Integumentary: Present: clear, warm, dry - Musculoskeletal Musculoskeletal: gait normal, strength equal bilaterally - Psychiatric Psychiatric: appropriate mood/affect, intact judgment & insight - Neurologic Neurologic: CNII-XII intact, moves all extremities Plan Activity: advance as tolerated Weight Bearing Status: Weight Bear as Tolerated Diet: regular, advance as tolerated Special Instructions: no heavy lifting Follow up with: Your, DOG GROOMER physician [Other] - 2-3 Days PRIMARY CARE, [Primary Care Provider] - 3-5 Days LETY HUBER MD [Staff Physician] - 10/29/19 (Please call [phone] to confirm your appointment with [facility] for 10/29/19. Please take your medication as prescribed. Nothing in the vagina X 4 weeks. Call with any concerns.) Prescriptions: Docusate Sodium [Colace] 100 mg PO BID PRN #60 capsule PRN Reason: Constipation Ferrous Sulfate [Feosol 325 MG tab] 325 mg PO BID #60 tablet HYDROcodone/APAP 5-325 [[place] 5/325] 1 each PO Q4HR PRN #7 tablet PRN Reason: Pain DOXYCYCLINE Hyclate [Vibramycin CAP] 100 mg PO Q12HR #14 capsule
[2019-10-20] MEDS ORDERED: medroxyPROGESTERone ACETATE 150 MG/ML SYRINGE IM ONE ×2 (07:54→11:03)
[2019-10-20] MEDS: ACETAMINOPHEN 325 MG TAB PO PRN (11:00)
[2019-10-20 11:54] VITALS: BP 135/87
== END 2019-10-20 12:30 | disposition home or self-care (01) | DRG 779 ==
LOC: ED 06:15 → OB 13:39
PROVIDERS: ADMIT Obstetrics & Gynecology; ATTEND Obstetrics & Gynecology
PROC: 30233N1 Transfusion of Nonautologous Red Blood Cells into Peripheral Vein, Percutaneous Approach (ICD-10-PCS; principal; 2019-10-17)
DX: O03.4 Incomplete spontaneous abortion without complication (principal); O23.591 Infection of other part of genital tract in pregnancy, first trimester; O23.41 Unspecified infection of urinary tract in pregnancy, first trimester; D64.9 Anemia, unspecified; O46.91 Antepartum hemorrhage, unspecified, first trimester; O26.891 Other specified pregnancy related conditions, first trimester; R50.82 Postprocedural fever; O99.011 Anemia complicating pregnancy, first trimester; E87.6 Hypokalemia; O99.281 Endocrine, nutritional and metabolic diseases complicating pregnancy, first trimester; Z67.11 Type A blood, Rh negative; Z3A.01 Less than 8 weeks gestation of pregnancy
CPT/HCPCS: 36415; 71045; 76801; 76830; 80048; 80170; 81001; 81003; 81015; 82565; 82728; 82941; 82947; 83615; 84132; 84145; 84702; 85007; 85025; 85027; 85379; 85461; 86140; 86850; 86870; 86900; 86901; 86920; 87040; 87086; 88305; G0378; J0290; J1050; J1580; J1885; J2210; J2270; J2405; J7030; J7040; P9016; U0003